=== PATIENT | male | born 1990 ===

== ENCOUNTER 2022-11-02 13:54 | Inpatient (IN) | payer OTHER ==
[~2022-11-02] VITALS: Ht 180.3 cm; Wt 100.0 kg
[2022-11-02] MEDS ORDERED: ONDANSETRON HCL 4 MG/2 ML VIAL IVP PRN (15:15)
[2022-11-02] MEDS ORDERED: MAGNESIUM HYDROXIDE SUSPENSION 30 ML UDCUP PO PRN (15:15)
[2022-11-02 16:05] LABS: AMPHET/METH SCREEN,URINE NEGATIVE (NEGATIVE); BARBITURATE SCREEN, URINE NEGATIVE (NEGATIVE); BENZODIAZEPINES SCREEN,URINE NEGATIVE (NEGATIVE); CANNABINOID SCREEN,URINE NEGATIVE (NEGATIVE); COCAINE SCREEN,URINE NEGATIVE (NEGATIVE); METHADONE SCREEN, URINE NEGATIVE (NEGATIVE); OPIATE SCREEN,URINE NEGATIVE (NEGATIVE); PHENCYCLIDINE SCREEN,URINE NEGATIVE (NEGATIVE)
[2022-11-02 16:11] LABS: BASOPHILS % (AUTO) 0.4 % (0.0-2.0); HEMATOCRIT 42.5 % (41-53); HEMOGLOBIN 14.1 g/dL (13.5-17.5); LYMPHOCYTES # (AUTO) 2.4 K/uL (1.0-4.8); LYMPHOCYTES % (AUTO) 38.2 % (22.0-44.0); MEAN CORPUSCULAR HEMOGLOBIN 27.6 pg (26.0-34.0); MEAN CORPUSCULAR HGB CONC 33.2 G/dL (31.0-37.0); MEAN CORPUSCULAR VOLUME 83 fL (80-100); MONOCYTES # (AUTO) 0.5 K/uL (0.1-1.0); MONOCYTES % (AUTO) 8.2 % (2.0-9.0); NEUTROPHILS # (AUTO) 3.1 K/uL (1.8-7.7); NEUTROPHILS % (AUTO) 50.2 % (40.0-70.0); PLATELET COUNT (AUTO) 187 K/uL (150-450); RED CELL DISTRIBUTION WIDTH 16.8 % (11.5-14.5)
[2022-11-02 16:20] LABS: CALCIUM, TOTAL 8.5 mg/dL (8.8-10.5); CARBON DIOXIDE 25 mmol/L (22-29); GLUCOSE,RANDOM 92 mg/dL (70-110)
[2022-11-02 16:27] LABS: ANION GAP 7 mmol/L (8-16); CHLORIDE 105 mmol/L (98-107); CREATININE 0.87 mg/dL (0.60-1.30); GLOMERULAR FILTR. RATE CALC > 60 mL/min (>60); POTASSIUM 3.5 mmol/L (3.5-5.1); SODIUM SERUM 137 mmol/L (136-145)
[2022-11-02 16:33] LABS: ALANINE AMINOTRANSFERASE 35 U/L (12-78); ALBUMIN 3.3 g/dL (3.4-5.0); ALKALINE PHOSPHATASE 92 U/L (46-116); ASPARTATE AMINOTRANSFERASE 27 U/L (15-37); BILIRUBIN,TOTAL 0.3 mg/dL (0.1-1.0); TOTAL PROTEIN, SERUM 7.4 g/dL (6.4-8.2)
[2022-11-02 21:23] VITALS: BP 107/63; PULSE 74; RESP 18; TEMP 99.2
[2022-11-02 21:50] LABS: APPEARANCE,URINE TURBID (CLEAR); BILIRUBIN,URINE NEGATIVE (NEGATIVE); GLUCOSE, URINE (UA) NEGATIVE (NEGATIVE); KETONES,URINE NEGATIVE (NEGATIVE); LEUKOCYTE ESTERASE ,URINE MODERATE (NEGATIVE); NITRATE,URINE NEGATIVE (NEGATIVE); OCCULT BLOOD,URINE NEGATIVE (NEGATIVE); PH,URINE 5.5 (5.0-8.0); PROTEIN,URINE NEGATIVE (NEGATIVE); UROBILINOGEN,URINE <=1.0 mg/dL (<=1.0)
[2022-11-02 22:01] LABS: BACTERIA,URINE Many /HPF (None Seen); RBC,URINE None Seen /HPF (0-2)
[2022-11-02 23:05] VITALS: PULSE 75; RESP 18; O2SAT 97
[2022-11-02] MEDS ORDERED: SODIUM CHLORIDE 3% 15 ML NEB SOLUTION NEB ONE (23:06)
[2022-11-03 05:19] VITALS: BP 108/62; PULSE 65; RESP 18; TEMP 97.8
[2022-11-03 07:42] VITALS: BP 100/64; PULSE 73; RESP 20; TEMP 98.4
[2022-11-03] MEDS ORDERED: SODIUM CHLORIDE 3% 15 ML NEB SOLUTION NEB ONE ×2 (08:01→16:16)
[2022-11-03 08:15] VITALS: PULSE 80; RESP 18; O2SAT 98
[2022-11-03] MEDS: FAMOTIDINE 20 MG TABLET PO SCH (09:10)
[2022-11-03 15:07] VITALS: BP 104/68; PULSE 78; RESP 20; TEMP 98.2
[2022-11-03 19:45] VITALS: BP 112/66; PULSE 81; RESP 20; TEMP 99.2
[2022-11-04 04:20] VITALS: BP 96/64; PULSE 69; RESP 18; TEMP 98.1
[2022-11-04 07:48] VITALS: BP 112/70; PULSE 74; RESP 18; TEMP 98.7
[2022-11-04] MEDS: FAMOTIDINE 20 MG TABLET PO SCH (08:35)
[2022-11-04] MEDS: CIPROFLOXACIN HCL 250 MG TABLET PO SCH ×2 (12:41→20:25)
[2022-11-04 15:25] VITALS: BP 102/72; PULSE 78; RESP 20; TEMP 98.2
[2022-11-04 16:57] VITALS: BP 106/68; PULSE 55; RESP 18; TEMP 97.9
[2022-11-04 17:06] LABS: QUANTIFERON, TB GOLD PLUS Positive (Negative)
[2022-11-04 19:50] VITALS: BP 100/60; PULSE 85; RESP 20; TEMP 97.6
[2022-11-05 04:38] VITALS: BP 108/62; PULSE 69; RESP 20; TEMP 98.3
[2022-11-05 08:00] VITALS: BP 112/68; PULSE 67; RESP 20; TEMP 97.8
[2022-11-05] MEDS: FAMOTIDINE 20 MG TABLET PO SCH (09:40)
[2022-11-05] MEDS: CIPROFLOXACIN HCL 250 MG TABLET PO SCH ×2 (09:40→19:35)
[2022-11-05 15:11] VITALS: BP 111/64; PULSE 73; RESP 20; TEMP 99.1
[2022-11-05] MEDS: BICTEGRAV/EMTRICIT/TENOFOV ALA 50-200-25 MG TABLET PO SCH (16:38)
[2022-11-05] MEDS: ACETAMINOPHEN 325 MG TABLET PO PRN (19:36)
[2022-11-05 20:25] VITALS: BP 118/68; PULSE 80; RESP 18; TEMP 98.3
[2022-11-06 05:17] VITALS: BP 112/53; PULSE 69; RESP 18; TEMP 98.4
[2022-11-06 07:46] VITALS: BP 127/72; PULSE 75; RESP 18; TEMP 99
[2022-11-06] MEDS: CIPROFLOXACIN HCL 250 MG TABLET PO SCH ×2 (08:51→20:15)
[2022-11-06] MEDS: FAMOTIDINE 20 MG TABLET PO SCH (08:51)
[2022-11-06] MEDS: BICTEGRAV/EMTRICIT/TENOFOV ALA 50-200-25 MG TABLET PO SCH (08:51)
[2022-11-06 16:00] VITALS: BP 105/58; PULSE 72; RESP 20; TEMP 98
[2022-11-06] MEDS: ACETAMINOPHEN 325 MG TABLET PO PRN (20:18)
[2022-11-06] MEDS: ZOLPIDEM TARTRATE 5 MG TABLET PO PRN (20:19)
[2022-11-06 20:22] VITALS: BP 128/75; PULSE 79; RESP 20; TEMP 98.9
[2022-11-07 04:29] VITALS: BP 100/68; PULSE 65; RESP 20; TEMP 98.6
[2022-11-07] MEDS: FAMOTIDINE 20 MG TABLET PO SCH (08:03)
[2022-11-07] MEDS: CIPROFLOXACIN HCL 250 MG TABLET PO SCH ×2 (08:03→19:38)
[2022-11-07] MEDS: BICTEGRAV/EMTRICIT/TENOFOV ALA 50-200-25 MG TABLET PO SCH (08:03)
[2022-11-07 09:09] VITALS: BP 132/74; PULSE 79; RESP 20; TEMP 98.5
[2022-11-07 16:00] VITALS: BP 127/76; PULSE 76; RESP 20; TEMP 98.1
[2022-11-07 19:59] VITALS: BP 117/76; PULSE 78; RESP 20; TEMP 98.8
[2022-11-08 05:00] VITALS: BP 105/62; PULSE 71; RESP 19; TEMP 99
[2022-11-08 07:30] VITALS: BP 109/66; PULSE 78; RESP 18; TEMP 98.5
[2022-11-08] MEDS: BICTEGRAV/EMTRICIT/TENOFOV ALA 50-200-25 MG TABLET PO SCH (08:29)
[2022-11-08] MEDS: FAMOTIDINE 20 MG TABLET PO SCH (08:29)
[2022-11-08] MEDS: CIPROFLOXACIN HCL 250 MG TABLET PO SCH ×2 (08:29→20:17)
[2022-11-08 15:02] VITALS: BP 112/68; PULSE 74; RESP 18; TEMP 98.7
[2022-11-08 19:53] VITALS: BP 133/84; PULSE 92; RESP 20; TEMP 99.3
[2022-11-09 05:15] VITALS: BP 110/65; PULSE 61; RESP 20; TEMP 97.9
[2022-11-09] MEDS: BICTEGRAV/EMTRICIT/TENOFOV ALA 50-200-25 MG TABLET PO SCH (08:18)
[2022-11-09] MEDS: CIPROFLOXACIN HCL 250 MG TABLET PO SCH ×2 (08:18→20:20)
[2022-11-09] MEDS: FAMOTIDINE 20 MG TABLET PO SCH (08:19)
[2022-11-09 08:27] VITALS: BP 110/63; PULSE 69; RESP 20; TEMP 98.5
[2022-11-09 16:00] VITALS: BP 123/99; PULSE 82; RESP 20; TEMP 98.3
[2022-11-09 19:44] VITALS: BP 119/63; PULSE 84; RESP 20; TEMP 98.6
[2022-11-10 05:37] VITALS: BP 107/60; PULSE 66; RESP 18; TEMP 98.1
[2022-11-10] MEDS: BICTEGRAV/EMTRICIT/TENOFOV ALA 50-200-25 MG TABLET PO SCH (09:10)
[2022-11-10] MEDS: CIPROFLOXACIN HCL 250 MG TABLET PO SCH ×2 (09:10→20:24)
[2022-11-10] MEDS: FAMOTIDINE 20 MG TABLET PO SCH (09:10)
[2022-11-10 15:00] VITALS: BP 109/62; PULSE 83; RESP 20; TEMP 97.8
[2022-11-10 19:46] VITALS: BP 106/82; PULSE 91; RESP 20; TEMP 98.5
[2022-11-10] MEDS: ZOLPIDEM TARTRATE 5 MG TABLET PO PRN (20:29)
[2022-11-11 04:51] VITALS: BP 114/56; PULSE 72; RESP 20; TEMP 97.9
[2022-11-11] MEDS: FAMOTIDINE 20 MG TABLET PO SCH (08:35)
[2022-11-11] MEDS: BICTEGRAV/EMTRICIT/TENOFOV ALA 50-200-25 MG TABLET PO SCH (08:35)
[2022-11-11] MEDS: CIPROFLOXACIN HCL 250 MG TABLET PO SCH (08:35)
[2022-11-11 08:49] VITALS: BP 114/60; PULSE 82; RESP 19; TEMP 97.8
[2022-11-11] MEDS ORDERED: BICT1TAB PO (10:52)
== END 2022-11-11 14:41 | DRG 204 ==
LOC: EMS 13:58 → 6S 20:00
PROVIDERS: ADMIT Internal Medicine; ATTEND Internal Medicine
DX: R05.9 Cough, unspecified (principal); Z21 Asymptomatic human immunodeficiency virus [HIV] infection status
CPT/HCPCS: 71046; 80053; 80307; 81001; 85025; 86361; 86480; 87015; 87086; 87186; 87206; 87556; 94640; 99285; Q9967; 36415-L1; 36415-TC